=== PATIENT | female | born 1930 | race Caucasian/White ===

== ENCOUNTER → 2019-04-11 | Outpatient (CLI) | payer MEDICARE, OTHER ==
--- NOTE | 2019-04-11 14:41 | XR ---
EXAMINATION TYPE: XR chest 2V DATE OF EXAM: 04/11/2019 COMPARISON: NONE TECHNIQUE: PA and lateral views submitted. HISTORY: Shortness of breath FINDINGS: The lungs are clear and there is no pneumothorax or focal pneumonia. Hypertrophic and degenerative changes spine. Atherosclerotic change aorta. Biapical pleural thickening with calcification on the le ft. Arthropathy of the shoulders. No overt failure. Subsegmental changes at both lung bases. IMPRESSION: 1. Basilar atelectasis favored over pneumonia. Correlate clinically. There is very minimal blunting o f the left costophrenic angle which may represent a tiny amount pleural fluid or pleural effusion. 2. Pleural calcifications be associated with asbestosis related disease..
== END | disposition home or self-care (01) ==
LOC: RADXRMAIN 14:17
PROVIDERS: ATTEND Family Medicine
DX: J98.11 Atelectasis (principal); J94.8 Other specified pleural conditions; F17.200 Nicotine dependence, unspecified, uncomplicated
CPT/HCPCS: 71046

== ENCOUNTER → 2019-06-16 | Outpatient (CLI) | payer MEDICARE, OTHER ==
--- NOTE | 2019-06-16 18:14 | ECHOF ---
Referral Reason:R01.1 MURMUR MEASUREMENTS -------- HEIGHT: 160.0 cm WEIGHT: 60.3 kg BP: IVSd: 0.8 cm (0.6 - 1.1) LVIDd: 3.8 cm (3.9 - 5.3) LVPWd: 1.0 cm (0.6 - 1.1) IVSs: 2.2 cm LVIDs: 1.7 cm LVPWs: 1.7 cm RVIDd: 2.0 cm (< 3.3) LAESV Index (A-L): 33.18 ml/m Ao Diam: 2.5 cm (2.0 - 3.7) LA Diam: 3.7 cm (2.7 - 3.8) AV Cusp: 2.0 cm (1.5 - 2.6) EPSS: 0.5 cm MV E Ivan: 0.61 m/s MV DecT: 287 ms MV A Ivan: 0.75 m/s MV E/A Ratio: 0.81 AV maxP.25 mmHg AV meanP.17 mmHg RAP: 15.00 mmHg RVSP: 41.97 mmHg MV EF SLOPE: 57.62 mm/s (70 - 150) MV EXCURSION: 21.17 mm (> 18.000) FINDINGS -------- Sinus rhythm. This was a technically good study. The left ventricular size is normal. Overall left ventricular systolic function is normal with, an EF between 55 - 60 %. Moderate asymmetric septal hypertrophy with septal thickness 1.6 - 1.9 cm. The right ventricle is normal in size. LA is midly dilated 29-33ml/m2. The right atrial size is normal. Interatrial and interventricular septum intact. Aortic valve is trileaflet and is mildly thickened. There is mild aortic stenosis present. Peak/m geetha gradient across the Aortic Valve is 20.25mmHg / 12.17mmHg. The mitral valve leaflets are mildly thickened. Moderate mitral regurgitation is present. Moderate tricuspid regurgitation present. There is mild pulmonary hypertension. The right ventric ular systolic pressure, as measured by Doppler, is 41.97mmHg. There is no pulmonic regurgitation present. The aortic root size is normal. The inferior vena cava is mildly dilated. There is no pericardial effusion. CONCLUSIONS -------- 1. Sinus rhythm. 2. This was a technically good study. 3. The left ventricular size is normal. 4. Overall left ventricular systolic function is normal with, an EF between 55 - 60 %. 5. Moderate asymmetric septal hypertrophy with septal thickness 1.6 - 1.9 cm. 6. The right ventricle is normal in size. 7. LA is midly dilated 29-33ml/m2. 8. The right atrial size is normal. 9. Interatrial and interventricular septum intact. 10. Aortic valve is trileaflet and is mildly thickened. 11. There is mild aortic stenosis present. 12. Peak/mean gradient across the Aortic Valve is 20.25mmHg / 12.17mmHg. 13. The mitral valve leaflets are mildly thickened. 14. Moderate mitral regurgitation is present. 15. Moderate tricuspid regurgitation present. 16. There is mild pulmonary hypertension. 17. The right ventricular systolic pressure, as measured by Doppler, is 41.97mmHg. 18. There is no pulmonic regurgitation present. 19. The aortic root size is normal. 20. The inferior vena cava is mildly dilated. 21. There is no pericardial effusion. LIGHTING DESIGNER: Maryjo Wang [facility]
== END | disposition home or self-care (01) ==
LOC: RADECHMAIN 08:30
PROVIDERS: ATTEND Physician Assistant
DX: I08.3 Combined rheumatic disorders of mitral, aortic and tricuspid valves (principal); I27.20 Pulmonary hypertension, unspecified
CPT/HCPCS: 93306